=== PATIENT | male | born 1960 | race Caucasian/White ===

== ENCOUNTER 2017-10-06 14:22 | Outpatient (CLI) | payer OTHER ==
[2017-10-07] MEDS ORDERED: [UNRECOGNIZED DRUG - OTHER] PO (14:05)
[2017-10-07] MEDS ORDERED: LOTREL 10-20 M1 EACH PO (14:05)
[2017-10-07] MEDS ORDERED: TAMS0.4C PO (14:06)
[2017-10-07] MEDS ORDERED: TRAMADOL HCL50 MG PO (14:06)
== END 2017-10-06 14:46 | disposition home or self-care (01) ==
LOC: RAD 14:22
DX: R07.1 Chest pain on breathing (principal)

== ENCOUNTER 2017-10-07 11:44 | Inpatient (IN) | payer OTHER ==
[~2017-10-07] VITALS: Ht 180.3 cm; Wt 103.4 kg
[2017-10-07] MEDS ORDERED: [UNRECOGNIZED DRUG - OTHER] PO (14:05)
[2017-10-07] MEDS ORDERED: LOTREL 10-20 M1 EACH PO (14:05)
[2017-10-07] MEDS ORDERED: TAMS0.4C PO (14:06)
[2017-10-07] MEDS ORDERED: TRAMADOL HCL50 MG PO (14:06)
[2017-11-19] MEDS ORDERED: DOCUSATE SODIU100 MG PO (13:46)
[2017-11-19] MEDS ORDERED: GABAPENTIN800 MG PO (13:46)
[2017-11-19] MEDS ORDERED: CLONAZEPAM1 MG PO (13:46)
[2017-11-19] MEDS ORDERED: PERCOCET 5-3251 EACH PO (13:46)
[2017-11-19] MEDS ORDERED: AMOX-CLAV 875-1 EACH PO (13:47)
[2017-11-19] MEDS ORDERED: ASA325 MG PO (13:47)
== END 2017-11-19 14:46 | disposition home or self-care (01) | DRG 454 ==
LOC: O/R 10-14 11:44 → PED 11-18 05:20 → O/R 11-18 09:45 → PED 11-18 13:43
PROVIDERS: Orthopaedic Surgery Orthopaedic Surgery of the Spine
PROC: 0SG0071 Fusion of Lumbar Vertebral Joint with Autologous Tissue Substitute, Posterior Approach, Posterior Column, Open Approach (ICD-10-PCS; 2017-11-18)
PROC: 0ST20ZZ Resection of Lumbar Vertebral Disc, Open Approach (ICD-10-PCS; 2017-11-18)
PROC: 0SG00AJ Fusion of Lumbar Vertebral Joint with Interbody Fusion Device, Posterior Approach, Anterior Column, Open Approach (ICD-10-PCS; 2017-11-18)
PROC: 07DS3ZZ Extraction of Vertebral Bone Marrow, Percutaneous Approach (ICD-10-PCS; 2017-11-18)
PROC: 0SG00A0 Fusion of Lumbar Vertebral Joint with Interbody Fusion Device, Anterior Approach, Anterior Column, Open Approach (ICD-10-PCS; principal; 2017-11-18 09:45)
DX: M48.061 Spinal stenosis, lumbar region without neurogenic claudication (principal); M51.06 Intervertebral disc disorders with myelopathy, lumbar region; M43.16 Spondylolisthesis, lumbar region; I10 Essential (primary) hypertension; G35 Multiple sclerosis; N40.0 Benign prostatic hyperplasia without lower urinary tract symptoms; E66.8 Other obesity